=== PATIENT | female | born 1950 | race Caucasian/White ===

== ENCOUNTER 2020-09-07 19:21 | Day surgery (SDCO) | payer MEDICARE, OTHER ==
[~2020-09-07 19:21] MED LIST: ADVIL200 M1 PO; ALENDRONATE SOD70 MG PO; AMITRIPTYLINE 550 MG PO; ANTI-ITCH28 GM TD; AUGMENTIN 875-1 EACH PO; ELAVIL50 MG PO; FOLIC ACID1 MG PO; HABITROL14 MG TD; MAG-OXIDE 400M400 MG PO; MUCINEX 600MG600 MG PO; PREDNISONE 10MG10 MG PO; PRILOSEC20 MG PO; PRINIVIL20 MG PO; PROAIR HFA8.5 GM INH; PROVENTIL2 MG/5 ML PO; SYMBICORT 80-10.2 GM INH; TRAZODONE 50MG50 MG PO; TUMS200 MG PO; VITAMIN D-40400 UNIT PO; VITAMIN D2000 UNI1 PO; ZANTAC150 MG PO; ZOFRAN4 MG PO
[2020-09-07 19:46] LABS: BASOPHIL 0.4 % (0-2); EOSINOPHIL 0.5 % (0-7); HCT 43.6 % (37.0-47.0); HGB 14.5 g/dl (12.5-16.0); LYMPHOCYTE 19.9 % (15-48); MCH 28.8 pg (25.0-31.0); MCHC 33.3 g/dL (32.0-36.0); MCV 86.7 fL (78.0-100.0); MONOCYTE 6.1 % (0-12); MPV 12.7 fL (6.0-9.5); NEUTROPHIL 72.7 % (41-80); NRBC 0; PLT 309 K/uL (150-400); RBC 5.03 M/uL (4.20-5.40); RDW 14.1 % (11.5-14.0); WBC 8.1 K/uL (4.0-10.5)
[2020-09-07 19:55] LABS: INR 1.07 (0.9-1.2); PROTHROMBIN TIME 13.2 SECONDS (11.4-13.6)
[2020-09-07 19:56] LABS: PTT 28.8 SECONDS (22.2-34.7)
[2020-09-07 20:13] LABS: ALBUMIN 4.3 g/dL (3.4-5.0); BILIRUBIN - TOTAL 0.3 mg/dL (0.2-1.0); CREATININE 0.79 mg/dL (0.51-0.95); FT4 (FREE T4) 1.8 ng/dL (0.76-1.46); GLOBULIN (CALCULATION) 4.4 g/dL; PHOSPHORUS 3.8 mg/dL (2.6-4.7); TOTAL PROTEIN 8.7 g/dL (6.4-8.2)
[2020-09-07 20:14] LABS: LACTIC ACID 1.6 mmol/L (0.4-1.9)
[2020-09-07 20:45] LABS: MAGNESIUM 0.2 mg/dL (1.8-2.4)
[2020-09-07 21:21] LABS: CORONAVIRUS 2019 SARS-COV-2 NEGATIVE (NEGATIVE); INFLUENZA A NAA NEGATIVE (NEGATIVE)
[2020-09-07 22:33] LABS: AMPHETAMINES NEGATIVE (NEGATIVE); BARBITURATES NEGATIVE (NEGATIVE); ECSTASY (MDMA) NEGATIVE (NEGATIVE); MARIJUANA (THC) NEGATIVE (NEGATIVE); METHADONE NEGATIVE (NEGATIVE); OPIATES NEGATIVE (NEGATIVE); OXYCODONE NEGATIVE (NEGATIVE)
[2020-09-07 22:34] LABS: BILIRUBIN NEGATIVE (NEGATIVE); BLOOD NEGATIVE Ery/uL (NEGATIVE); CLARITY CLEAR (CLEAR); COLOR YELLOW (YELLOW); GLUCOSE (U) NORMAL (NORMAL); LEUKOCYTES NEGATIVE Leu/uL (NEGATIVE); NITRITE NEGATIVE (NEGATIVE); PROTEIN 1+ mg/dL (NEGATIVE); SPECIFIC GRAVITY >=1.030 (1.001-1.030); UROBILINOGEN 0.2 mg/dL (0.2-1.0); pH 5.5 (5.0-9.0)
[2020-09-07 22:37] LABS: URINARY RBC RARE
[2020-09-07 22:38] LABS: BACTERIA TRACE; SQUAMOUS EPITHELIAL CELLS RARE
[2020-09-08] MEDS ORDERED: SYMBICORT 80-10.2 GM INH (01:22)
[2020-09-08] MEDS ORDERED: VENTOLIN (2.5 MG/3 M INH (01:22)
[2020-09-08] MEDS ORDERED: NORVASC5 MG PO (01:23)
[2020-09-08] MEDS ORDERED: OMEPRAZOLE40 MG PO (01:23)
[2020-09-08 07:01] LABS: BASOPHIL 0.5 % (0-2); EOSINOPHIL 1.2 % (0-7); HCT 34.1 % (37.0-47.0); HGB 11.4 g/dl (12.5-16.0); MCH 29.2 pg (25.0-31.0); MCHC 33.4 g/dL (32.0-36.0); MCV 87.4 fL (78.0-100.0); MONOCYTE 11.3 % (0-12); MPV 12.3 fL (6.0-9.5); NEUTROPHIL 71.6 % (41-80); NRBC 0; PLT 245 K/uL (150-400); RDW 14.1 % (11.5-14.0); WBC 8.5 K/uL (4.0-10.5)
[2020-09-08 07:15] LABS: ALBUMIN 3.2 g/dL (3.4-5.0); BILIRUBIN - TOTAL 0.4 mg/dL (0.2-1.0); BUN/CREAT RATIO (CALC) 18.7 RATIO; CREATININE 0.75 mg/dL (0.51-0.95); POTASSIUM 3.2 mmol/L (3.5-5.1)
[2020-09-08 07:16] LABS: GLOBULIN (CALCULATION) 3.4 g/dL; MAGNESIUM 2.1 mg/dL (1.8-2.4); TOTAL PROTEIN 6.6 g/dL (6.4-8.2)
--- NOTE | 2020-09-08 09:59 | NUR ---
PT REPORTS SHE LIVES WITH SPOUSE; NORMALLY INDEPENDENT WITH CARE SOME INFORMATION GIVEN BY GRANDDAUGHTER DUE TO AMS; PT IS CURRENTLY OBSERVATION. WOULD PT BENIFIT FROM HOME HEALTH
[2020-09-09 06:00] LABS: BASOPHIL 0.3 % (0-2); EOSINOPHIL 0.4 % (0-7); HCT 35.2 % (37.0-47.0); HGB 11.7 g/dl (12.5-16.0); LYMPHOCYTE 9.9 % (15-48); MCH 29.3 pg (25.0-31.0); MCHC 33.2 g/dL (32.0-36.0); MONOCYTE 11.8 % (0-12); MPV 12.3 fL (6.0-9.5); NEUTROPHIL 77.3 % (41-80); NRBC 0; PLT 225 K/uL (150-400); RDW 14.2 % (11.5-14.0); WBC 9.2 K/uL (4.0-10.5)
[2020-09-09 06:29] LABS: BUN/CREAT RATIO (CALC) 22.1 RATIO; CREATININE 0.68 mg/dL (0.51-0.95); POTASSIUM 3.5 mmol/L (3.5-5.1)
[2020-09-09] MEDS ORDERED: MAG-OXIDE 400M400 MG PO (14:15)
[2020-09-09] MEDS ORDERED: IMODIUM2 MG PO (14:15)
[2020-09-09] MEDS ORDERED: K-DUR20 MEQ PO (14:15)
[2020-09-09] MEDS ORDERED: COLESTID1 GM PO (14:15)
== END 2020-09-09 16:00 | disposition home health service (06) ==
LOC: FER 19:21 → FMS 23:01
PROVIDERS: Emergency Medicine Emergency Medical Services; Nurse Practitioner; ADMIT Internal Medicine
DX: K52.9 Noninfective gastroenteritis and colitis, unspecified (principal); E83.42 Hypomagnesemia; E87.6 Hypokalemia; R41.0 Disorientation, unspecified; J44.9 Chronic obstructive pulmonary disease, unspecified; F41.9 Anxiety disorder, unspecified; K21.9 Gastro-esophageal reflux disease without esophagitis; F17.210 Nicotine dependence, cigarettes, uncomplicated; R09.02 Hypoxemia; Z79.83 Long term (current) use of bisphosphonates; Z79.899 Other long term (current) drug therapy; Z20.822 Contact with and (suspected) exposure to COVID-19
CPT/HCPCS: 36415; 36600; 70450; 71045; 80048; 80053; 80305; 81001; 82140; 82550; 82803; 83605; 83735; 84100; 84145; 84439; 84443; 84484; 85025; 85610; 85730; 87040; 87045; 87046; 87088; 93005; 94640; 94760; G0378; J2405; J3475; J3480; J7050; U0002

== ENCOUNTER → 2021-08-30 | Day surgery (SDC) | payer MEDICARE, OTHER ==
[~2021-08-30] VITALS: Ht 157.5 cm; Wt 44.5 kg
[~2021-08-30] MED LIST changes: +COLESTID1 GM PO; +IMODIUM2 MG PO; +K-DUR20 MEQ PO; +NORVASC5 MG PO; +OMEPRAZOLE40 MG PO; +PEPTO-BISM262 MG/15 PO; +VENTOLIN (2.5 MG/3 M INH
== END | disposition home or self-care (01) ==
LOC: FAS 07:11
DX: Z12.11 Encounter for screening for malignant neoplasm of colon (principal); Z98.84 Bariatric surgery status; K57.30 Diverticulosis of large intestine without perforation or abscess without bleeding; K58.0 Irritable bowel syndrome with diarrhea
CPT/HCPCS: J1610; J2704; J7120